=== PATIENT | male | born 1960 | race Caucasian/White ===

== ENCOUNTER 2017-10-30 16:01 | Emergency (ER) | payer BC ==
[2017-10-30 16:50] VITALS: BP 133/86
--- NOTE | 2017-10-30 17:05 | ED ---
Upper Extremity Pain - HPI Summary HPI Summary: 57 yr old male with injury to the left index finger. He states that he was working on an engine and the fly wheel was turning and he hit his index finger against it. he has an injury that combines finger getting hit hard and tearing/ sheering skin. Last Tetanus shot was in 2016. - History of Current Complaint Chief Complaint: UCLaceration Stated Complaint: L FINGER INJURY Time Seen by Provider: 10/30/17 16:53 - Allergies/Home Medications Allergies/Adverse Reactions: Allergies Allergy/AdvReac Type Severity Reaction Status Date / Time No Known Allergies Allergy Verified 10/30/17 16:50 Home Medications: Home Medications Aspirin [Aspir-Low] 81 mg PO DAILY 10/30/17 [History Confirmed 10/30/17] Cholecalciferol TAB* [Vitamin D TAB*] 2,000 units PO DAILY 10/30/17 [History Confirmed 10/30/17] Levothyroxine TAB* [Synthroid TAB*] 88 mcg PO 0800 10/30/17 [History Confirmed 10/30/17] PMH/Surg Hx/FS Hx/Imm Hx Endocrine/Hematology History: Reports: Hx Thyroid Disease Denies: Hx Diabetes Cardiovascular History: Denies: Hx Hypertension, Hx Pacemaker/ICD History: Denies: Hx Renal Disease Sensory History: Denies: Hx Hearing Aid Psychiatric History: Denies: Hx Panic Disorder - Surgical History Surgery Procedure, Year, and Place: TONSILS AGE 3 Infectious Disease History: No Infectious Disease History: Denies: Traveled Outside the [place] in Last 30 Days - Family History Known Family History: Positive: None - Social History Occupation: Employed Full-time Lives: With Family Alcohol Use: Rare Substance Use Type: Reports: None Smoking Status (MU): Never Smoked Tobacco Review of Systems Positive: Other - finger injury All Other Systems Reviewed And Are Negative: Yes Physical Exam Triage Information Reviewed: Yes Vital Signs On Initial Exam: Initial Vitals Temp Pulse Resp BP Pulse Ox 97.6 F 84 16 133/86 97 10/30/17 16:47 10/30/17 16:47 10/30/17 16:47 10/30/17 16:47 10/30/17 16:47 Vital Signs Reviewed: Yes Appearance: Positive: Well-Appearing, No Pain Distress Eyes: Positive: EOMI Neck: Positive: Supple, Nontender Respiratory/Lung Sounds: Positive: Other - normal effort Cardiovascular: Positive: Pulses are Symmetrical in both Upper and Lower Extremities Musculoskeletal: Positive: Other - left index finger wtih open wound distal phalynx and macerated tissue present. nail is on and not undermined. No straing laceration to repair. Neurological: Positive: Sensory/Motor Intact, Alert, Oriented to Person Place, Time Diagnostics - Vital Signs Vital Signs Temp Pulse Resp BP Pulse Ox 10/30/17 16:47 97.6 F 84 16 133/86 97 - Laboratory Lab Statement: Any lab studies that have been ordered have been reviewed, and results considered in the medical decision making process. - Radiology finger Xray Interpretation: Positive (See Comments) - fracture distal finger Radiology Interpretation Completed By: Radiologist Course/Dx - Course Course Of Treatment: 57 yr old with open fracture. Fracture irrigated with 300 CC NS, sterile dressing and splint applied by nursing staff. Keflex given. Transfer center at [facility] notified and they instructed me [facility] patient. They have the name and date of of this patient. - Diagnoses Provider Diagnoses: Open fracture of distal phalangeal tuft Discharge - Sign-Out/Discharge Documenting (check all that apply): Discharge/Admit/Transfer - Discharge Plan Condition: Good [facility] Patient Education Materials: Hand Fracture (ED) Referrals: Andrés Manuel MD [Primary Care Provider] - Additional Instructions: you need to go to [facility] ER upon leaving here for further management by the hand specialist. Emergency Department, [facility] Map & directions [facility] [place] [address] - Billing Disposition and Condition Condition: GOOD Disposition: SANJEEV
--- NOTE | 2017-10-30 17:17 | RAD ---
Indication: Left index finger injury. 3 views of left index finger demonstrates fracture of the distal tuft. Soft tissue swelling is noted. Degenerative changes of the distal interphalangeal joint is noted. IMPRESSION: Fracture of the distal tuft of the distal phalanx with amputation of the soft tissues.
[2017-10-30] MEDS ORDERED: Cephalexin CAP* 500 MG PO ONE (17:31)
[2017-10-30] MEDS ORDERED: Ondansetron ODT TAB* 4 MG PO ONE (17:44)
[2017-10-30] MEDS ORDERED: HYDROcodone/ACETAMIN 5-325 MG* 1 TAB PO ONE (17:44)
== END 2017-10-30 18:05 | disposition short-term general hospital (02) ==
LOC: UCCORT 16:01
DX: S62.661B Nondisplaced fracture of distal phalanx of left index finger, initial encounter for open fracture (principal); W31.89XA Contact with other specified machinery, initial encounter; Y92.9 Unspecified place or not applicable
CPT/HCPCS: 73140; 99213; A9270-GY; G0463

== ENCOUNTER 2018-03-25 09:53 | Emergency (ER) | payer BC ==
[2018-03-25] MEDS ORDERED: Ibuprofen TAB* 800 MG PO ONE (11:09)
--- NOTE | 2018-03-25 11:11 | ED ---
Upper Extremity Pain - HPI Summary HPI Summary: Patient presents with left middle finger injury prior to arrival. He reports he was stacking wood when a piece avoid fell and crushed his finger tip. His nail is partially popped out of his skin and has some bleeding. He has pain and throbbing at the tip of his finger. Still has sensation and full range of motion. His tetanus is up-to-date as he injured himself last year around this time. He is currently icing which seems to help and took 2 extra strength Tylenol prior to leaving his house. Doesn't feel that that medication is helping much. Would like to try some ibuprofen. - History of Current Complaint Chief Complaint: EDExtremityUpper Stated Complaint: LT MIDDLE FINGER INJURY Time Seen by Provider: 03/25/18 11:03 Hx Obtained From: Patient, Family/Freight Claim Investigator - - Allergies/Home Medications Allergies/Adverse Reactions: Allergies Allergy/AdvReac Type Severity Reaction Status Date / Time No Known Allergies Allergy Verified 03/25/18 10:05 PMH/Surg Hx/FS Hx/Imm Hx Previously Healthy: Yes Endocrine/Hematology History: Reports: Hx Thyroid Disease Denies: Hx Diabetes Cardiovascular History: Denies: Hx Hypertension, Hx Pacemaker/ICD History: Denies: Hx Renal Disease Sensory History: Denies: Hx Hearing Aid Psychiatric History: Denies: Hx Panic Disorder - Surgical History Surgery Procedure, Year, and Place: TONSILS AGE 3 - Immunization History Immunizations Up to Date: Yes Infectious Disease History: No Infectious Disease History: Reports: Traveled Outside the [place] in Last 30 Days - [place] - Family History Known Family History: Positive: None - Social History Lives: With Family Alcohol Use: Rare Hx Substance Use: No Substance Use Type: Reports: None Hx Tobacco Use: No Smoking Status (MU): Never Smoked Tobacco Review of Systems Positive: no symptoms reported Positive: Arthralgia, Edema. Negative: Decreased ROM Skin: Other - finger bleeding Neurological: Negative Psychological: Normal All Other Systems Reviewed And Are Negative: Yes Physical Exam Triage Information Reviewed: Yes Vital Signs On Initial Exam: Initial Vitals Temp Pulse Resp BP Pulse Ox 96.8 F 62 14 124/82 95 03/25/18 10:05 03/25/18 10:05 03/25/18 10:05 03/25/18 10:05 03/25/18 10:05 Vital Signs Reviewed: Yes Appearance: Positive: Well-Appearing, Well-Nourished, Pain Distress - mild to moderate Skin: Positive: Warm, Skin Color Reflects Adequate Perfusion - proximal nail bed of Lt middle finger is protruding from eponychium which is also split at the distal edge - nail is cracked centrally - no other skin wounds/breakdown about this area Head/Face: Positive: Normal Head/Face Inspection Eyes: Positive: EOMI ENT: Positive: Hearing grossly normal Respiratory/Lung Sounds: Positive: Breath Sounds Present Cardiovascular: Positive: Pulses are Symmetrical in both Upper and Lower Extremities Musculoskeletal: Positive: Normal, Strength/ROM Intact Neurological: Positive: Normal, Sensory/Motor Intact, Alert, Oriented to Person Place, Time, CN Intact II-III Psychiatric: Positive: Normal Procedures - Laceration/Wound Repair 1 Location: upper extremity - Lt middle finger Description: Irregular - proximal nail avuslion Anesthesia: Digital, 1.0%, Lido Length, Depth and Shape: nail avulsion entails entire border of proximal nail which is ~1.5cm across; repair included tucking nail under remaining eponychium and 3 sutures placed to pin nail to finger tissue - hemodynamically stable - pt tolerated well Betadine Prep?: No - hibaclens Laceration/Wound Explored: clean Closure: Single Layer Suture Type: Prolene - 5-0 Number of Sutures: 3 Layer Closure?: No Sterile Dressing Applied?: Yes - xeroform + gauze + splint Diagnostics - Vital Signs Vital Signs Temp Pulse Resp BP Pulse Ox 03/25/18 10:05 96.8 F 62 14 124/82 95 - Laboratory Lab Statement: Any lab studies that have been ordered have been reviewed, and results considered in the medical decision making process. Re-Evaluation - Re-Evaluation First Eval Change: Improved Course/Dx - Course Course Of Treatment: XR: tuft fx of the Lt distal phalange of the middle finger - Diagnoses Provider Diagnoses: Nail avulsion, finger, Open fracture of tuft of distal phalanx of finger Discharge - Sign-Out/Discharge Documenting (check all that apply): Patient Departure - Discharge Plan Condition: Stable Disposition: HOME Prescriptions: Cephalexin CAP* [Keflex CAP*] 500 mg PO BID #20 cap Ibuprofen TAB* [Motrin TAB* 600 MG] 600 mg PO Q6H PRN #20 tab PRN Reason: Pain Patient Education Materials: Care For Your Stitches (ED), Finger Fracture (ED) , Nail Avulsion (ED) Referrals: Grisel Nicole MD [Medical Doctor] - Additional Instructions: You have a tuft fracture with a partial nail avulsion Keep Dressing clean and dry and in place for the next 48 hours. Follow-up with hand specialist Monday to remove dressing and recheck wound. Call tomorrow to schedule. For pain, rest, ice, elevate and take ibuprofen with food. * If you develop redness, swelling, streaking, purulent drainage, fevers or chills, seek medical attention sooner or return to the emergency department. - Billing Disposition and Condition Condition: STABLE Disposition: Home
--- NOTE | 2018-03-25 11:41 | RAD ---
INDICATION: Crush injury to the distal left third finger COMPARISON: The left middle finger was partially visualized on the radiograph acquired October 30, 2017 TECHNIQUE: 3 views of the left middle finger were obtained. FINDINGS: There is fracture through the distal tuft of the left middle finger distal phalanx. On the AP view the fracture line is obliquely oriented from the ulnar aspect of the tuft proximally to the radial aspect distally. There is no significant displacement seen in the oblique or lateral views. IMPRESSION: MINIMALLY DISPLACED FRACTURE THROUGH THE LEFT MIDDLE FINGER DISTAL TUFT.
[2018-03-25] MEDS ORDERED: ceFAZolin 2 GM in NS PREMIX(*) 2 GM/100 ML BAG IVPB ONE (11:51)
[2018-03-25 14:51] VITALS: BP 117/84
== END 2018-03-25 14:50 | disposition home or self-care (01) ==
LOC: ED 09:53
DX: S62.663B Nondisplaced fracture of distal phalanx of left middle finger, initial encounter for open fracture (principal); W20.8XXA Other cause of strike by thrown, projected or falling object, initial encounter; Y93.89 Activity, other specified; Y92.9 Unspecified place or not applicable; E07.9 Disorder of thyroid, unspecified
CPT/HCPCS: 11760; 73140; 96374; 99282; A9270-GY; J0690